=== PATIENT | female | born 1935 | race Caucasian/White ===

== ENCOUNTER → 2016-05-29 | Outpatient (CLI) | payer MEDICARE, OTHER ==
[~2016-05-29] MED LIST: ALBUTEROL0.09 MG/AC IH; COUMADIN0.5 MG PO; ESIDREX,ORETI12.5 MG PO; EYE DROPS; HYDR25T PO; JANUVIA25 MG PO; KEFLEX250 MG PO; KLOR-CON20 MEQ PO; LASIX40 MG PO; LISINOPRIL5 MG PO; LOPRESSOR25 MG PO; METFORMIN500 MG PO; OMEPRAZOLE20 M1 PO; POTASSIUM CHLO20 MEQ PO; PROVENTIL0.09 MG/A1 INH; TOPROL XL25 MG PO; VITAMIN D35000 IU PO; WARFARIN2 MG PO; ZESTRIL10 MG PO
== END | disposition home or self-care (01) ==
LOC: RAD 14:38
DX: M19.072 Primary osteoarthritis, left ankle and foot (principal); M79.89 Other specified soft tissue disorders; M85.872 Other specified disorders of bone density and structure, left ankle and foot; M20.12 Hallux valgus (acquired), left foot; M77.32 Calcaneal spur, left foot

== ENCOUNTER → 2020-10-03 | Outpatient (CLI) | payer MEDICARE, OTHER | END | disposition home or self-care (01) | LOC: RAD 13:20 | PROVIDERS: ATTEND Internal Medicine | DX: J44.9 Chronic obstructive pulmonary disease, unspecified (principal); M81.0 Age-related osteoporosis without current pathological fracture; M19.012 Primary osteoarthritis, left shoulder ==